=== PATIENT | male | born 2000 | race Two or more races ===

== ENCOUNTER 2025-04-13 10:23 | Inpatient (IN) ==
--- NOTE | 2025-04-13 10:45 | Emergency Department Note ---
Impression & Plan Altered mental status, Rhabdomyolysis ED Provider Note ED Provider Note NAME: PAULINE [id number] JARRETT AGE:24 SEX: Male : 2000 ARRIVES VIA: EMS INFORMANT: Patient ED PROVIDER(s): Roselia Gardner DO CHIEF COMPLAINT: AMS HPI: 24-year-old male presents the emergency room with complaints of agitation and altered mental status. Patient had been detained since September by records. States that they have not had problems with him until yesterday when he would not leave the yard after outside time. He had staring episodes and would not move or interact. He was brought to the [facility] overnight, he felt improved, so they brought him to the emergency room today. Unknown if there is any ingestions. No history of anything except a recorded decreased mentation at baseline. No surgical history, no medical problems. Not on any medicines. Patient was agitated on the scene, EMS had given ketamine and subsequently some Versed. He had improved following this, but by arrival in the emergency room, he was again agitated, additional Versed was given. He was agitated, verbal de- escalation attempted without improvement. Threatening staff, physical attempts at harm. PAST MEDICAL HISTORY:See Below PAST SURGICAL HISTORY:See Below FAMILY HISTORY:See Below SOCIAL HISTORY:See Below HOME MEDICATIONS:See Below ALLERGIES:See Below VITALS:See Below PHYSICAL EXAMINATION: GENERAL: alert, well appearing, well nourished, agitated, non-toxic EYE EXAM: normal conjunctiva, PERRL and EOM's grossly intact OROPHARYNX: no exudate, no erythema, lips, buccal mucosa, and tongue normal and mucous membranes are moist NECK: supple, no nuchal rigidity, no adenopathy, non-tender LUNGS: Clear to auscultation. Normal chest wall mechanics, no w/r/r HEART: no murmurs, S1 normal and S2 normal ABDOMEN: abdomen soft, non-tender, normo-active bowel sounds, no masses, no rebound or guarding. BACK: Back is symmetrical on inspection and there is no deformity, no midline tenderness, no CVA tenderness. SKIN: no rashes, petechiae, orbruising UPPER EXTREMITIES: upper extremities are grossly normal. FROM, nml pulses b/l. LOWER EXTREMITIES: No pitting edema. FROM, nml pulses b/l. NEURO EXAM: Normal sensorium, cranial nerves II-XII grossly intact, normal speech, no facial droop,nogross weakness of arms, no gross weakness of legs. Gross sensation intact. No ataxia. PSYCH: Patient is agitated, at times threatening staff, verbal de-escalation ineffective Vital Signs: reviewed and remarkable Differential Diagnosis: Alcohol intoxication, toxicologic, infection, hypoglycemia, electrolyte abnormalities, cardiac sources, intracerebral event, neurologic, trauma, as well as other pathologies. MEDICAL DECISION MAKIN-year-old male presents the emergency room with complaints of altered mental status. While in the emergency room, patient was threatening staff, verbal de- escalation ineffective. Patient was medicated and restrained. [id number] completed at the time of restraint. Patient improved, but then began to have increased agitation, unable to complete CT. Zyprexa ordered. Patient reevaluated again, patient's really improved with Zyprexa when at rest, but with any sort of stimulation, still having extreme agitation waking up, striking at staff and being uncooperative. Unable to obtain any imaging. Additional medications ordered. Patient reevaluated, now appropriately sedated. Able to get images. Maintaining airway. End-tidal appropriate. 1340 -Spoke with hospitalist team, will admit to Dr. Jordan. ER Treatment Provided: See below Diagnostics Interpreted By Me: -ECG: EKG shows sinus tachycardia rate of 117 with poor baseline, nonspecific ST changes, T wave inversions in lead III. Some flattening times. QT C440, QTc 316. -Cardiac Monitoring: An order was placed for continuous cardiac monitoring. The monitor shows a rate of 114 with sinus tach rhythm. -Laboratory studies: As stated above and show below. -Imaging studies: CT head WNL, CXR WNL Triage Nursing Note Reviewed Prior/Outside Records Reviewed Critical Care: There was over 35 minutes of critical care time spent managing this patient including any procedures. Past Med/Surg History Problem List (Updated 04/13/25 @ 12:07 by Roselia Gardner DO) Rhabdomyolysis (Acute) Altered mental status (Acute) Social History Smoking Status: Unknown if ever smoked Preferred Language: Danish Feels Safe at Home: Declines to Answer Home Meds Home Medications Medication Instructions Recorded Confirmed No Known Home Medications 04/13/25 04/13/25 Results & Data (ED) Vital Signs Vital Signs - 24 hr 04/13/25 10:42 04/13/25 10:42 04/13/25 10:42 Temperature 37.6 C H Temperature Source Axillary Pulse Rate Pulse Rate [Right Finger] 116 H Respiratory Rate 18 Respiratory Effort / Characteristics Non-Labored Spontaneous Respiratory Depth Normal Respiratory Pattern Regular Blood Pressure Blood Pressure [Right Arm] 126/77 Blood Pressure Mean Blood Pressure Mean [Right Arm] 93 Pulse Oximetry 96 97 Oxygen Delivery Method Room Air Room Air Sepsis Recent Fever Within 48 Hours No Sepsis New/Unexplained Change in Mental Status No Sepsis Action Taken by Nursing No Action Required End-Tidal CO2 End Tidal CO2 (18-54mmHg) 45 04/13/25 10:45 04/13/25 10:48 04/13/25 10:50 Temperature Temperature Source Pulse Rate 125 H 121 H Pulse Rate [Right Finger] Respiratory Rate 13 Respiratory Effort / Characteristics Respiratory Depth Respiratory Pattern Blood Pressure 126/77 Blood Pressure [Right Arm] Blood Pressure Mean 89 Blood Pressure Mean [Right Arm] Pulse Oximetry 95 Oxygen Delivery Method Sepsis Recent Fever Within 48 Hours Sepsis New/Unexplained Change in Mental Status Sepsis Action Taken by Nursing End-Tidal CO2 39 End Tidal CO2 (18-54mmHg) 04/13/25 11:00 04/13/25 11:00 04/13/25 11:03 Temperature Temperature Source Pulse Rate 109 H Pulse Rate [Right Finger] Respiratory Rate 20 Respiratory Effort / Characteristics Respiratory Depth Respiratory Pattern Blood Pressure 110/72 110/72 Blood Pressure [Right Arm] Blood Pressure Mean 81 81 Blood Pressure Mean [Right Arm] Pulse Oximetry 96 Oxygen Delivery Method Sepsis Recent Fever Within 48 Hours Sepsis New/Unexplained Change in Mental Status Sepsis Action Taken by Nursing End-Tidal CO2 43 End Tidal CO2 (18-54mmHg) 04/13/25 11:36 04/13/25 11:42 04/13/25 11:54 Temperature Temperature Source Pulse Rate 108 H Pulse Rate [Right Finger] Respiratory Rate Respiratory Effort / Characteristics Respiratory Depth Respiratory Pattern Blood Pressure 122/72 110/76 Blood Pressure [Right Arm] Blood Pressure Mean 83 86 Blood Pressure Mean [Right Arm] Pulse Oximetry 96 Oxygen Delivery Method Sepsis Recent Fever Within 48 Hours Sepsis New/Unexplained Change in Mental Status Sepsis Action Taken by Nursing End-Tidal CO2 End Tidal CO2 (18-54mmHg) 04/13/25 12:00 04/13/25 12:00 Temperature Temperature Source Pulse Rate Pulse Rate [Right Finger] Respiratory Rate Respiratory Effort / Characteristics Respiratory Depth Respiratory Pattern Blood Pressure 91/55 L 91/55 L Blood Pressure [Right Arm] Blood Pressure Mean 72 72 Blood Pressure Mean [Right Arm] Pulse Oximetry Oxygen Delivery Method Sepsis Recent Fever Within 48 Hours Sepsis New/Unexplained Change in Mental Status Sepsis Action Taken by Nursing End-Tidal CO2 End Tidal CO2 (18-54mmHg) Laboratory Data 04/13/25 12:13 04/13/25 11:00 Lab Results 04/13/25 04/13/25 04/13/25 Range/Units 11:00 11:05 11:43 WBC Cancelled RBC Cancelled Hgb Cancelled POC Hgb 16.7 (14.0-18.0) g/dl Hct Cancelled POC Hct 49 (42-52) % MCV Cancelled MCH Cancelled MCHC Cancelled RDW Std Deviation Cancelled RDW Coeff of Nain Cancelled Plt Count Cancelled MPV Cancelled Immature Gran % (Auto) Cancelled Neut % (Auto) Cancelled Lymph % (Auto) Cancelled [place] % (Auto) Cancelled Eos % (Auto) Cancelled Baso % (Auto) Cancelled Neut # (Auto) Cancelled Lymph # (Auto) Cancelled [place] # (Auto) Cancelled Eos # (Auto) Cancelled Baso # (Auto) Cancelled Immature Gran # (Auto) Cancelled Absolute Nucleated RBC Cancelled Nucleated RBC % (auto) Cancelled Neutrophils % (Manual) Cancelled Band Neutrophils % Cancelled Lymphocytes % (Manual) Cancelled Prolymphocyte % Cancelled Reactive Lymphs % (Man) Cancelled Monocytes % (Manual) Cancelled Eosinophils % (Manual) Cancelled Basophils % (Manual) Cancelled Metamyelocytes % (Man) Cancelled Myelocytes % (Man) Cancelled Promyelocytes % (Man) Cancelled Blast Cells % (Manual) Cancelled Plasma Cell % (Manual) Cancelled Other Cells % Cancelled Nucleated RBC % Cancelled Neutrophils # (Manual) Cancelled Band Neutrophils # Cancelled Total Absolute Neuts Cancelled Lymphocytes # (Manual) Cancelled Prolymphocyte # Cancelled Reactive Lymphs # Cancelled Total Abs Lymphocytes Cancelled Monocytes # (Manual) Cancelled Eosinophils # (Manual) Cancelled Basophils # (Manual) Cancelled Metamyelocytes # (Man) Cancelled Myelocytes # (Manual) Cancelled Promyelocytes # (Man) Cancelled Blast Cells # (Man) Cancelled Plasma Cell # (Manual) Cancelled Other Cells # Cancelled Nucleated RBCs # (Man) Cancelled Hypersegmented Neuts Cancelled Hyposegmented Neuts Cancelled Hypogranular Neuts Cancelled Large Granular Lymphs Cancelled # Lrg Granular Lymphs Cancelled Hairy Cells Cancelled Smudge Cells Cancelled Toxic Granulation Cancelled Toxic Vacuolation Cancelled Dohle Bodies Cancelled [place] Rod[place] Cancelled Platelet Estimate Cancelled Hypogranular Platelets Cancelled Giant Platelets Cancelled Platelet Satelliting Cancelled RBC Morphology Cancelled Polychromasia Cancelled Hypochromasia Cancelled Poikilocytosis Cancelled Basophilic Stippling Cancelled Anisocytosis Cancelled Microcytosis Cancelled Macrocytosis Cancelled Spherocytes Cancelled Pappenheimer Bodies Cancelled Sickle Cells Cancelled Target Cells Cancelled Tear Drop Cells Cancelled Ovalocytes Cancelled Stomatocytes Cancelled [place] Bodies Cancelled Echinocytes Cancelled Acanthocytes (Spur) Cancelled Rouleaux Cancelled RBC Agglutinates Cancelled Schistocytes Cancelled [place] Cell Cancelled POC Sodium 141 (135-144) mmol/L Sodium 141 (136-145) mmol/L POC Potassium 4.5 (3.3-5.0) mmol/L Potassium 4.2 (3.5-5.1) mmol/L POC Chloride 108 (101-112) mmol/L Chloride 107 (98-107) mmol/L Carbon Dioxide 23 (21-32) mmol/L POC Total CO2 22 L (24-31) mmol/L Anion Gap 11 (3-11) POC Anion Gap 16.0 (16-25) mmol/L POC BUN 21 H (7-18) mg/dl BUN 18 (6-23) mg/dl Creatinine 1.22 (0.6-1.4) mg/dl POC Creatinine 1.3 (0.6-1.3) mg/dl Est Cr Clr Drug Dosing 104.6 ml/min eGFR 84.38 BUN/Creatinine Ratio 14.8 (10-20) Glucose 88 (70-99(Fasting)) mg/dl POC Glucose (other) 88 (70-99) mg/dl Calcium 9.1 (8.6-10.3) mg/dl POC Ioniz Calcium Angelo 1.14 (1.12-1.32) mmol/l Total Bilirubin 0.7 (0.2-1.0) mg/dl AST 37 (13-39) U/L ALT 87 H (7-52) U/L Alkaline Phosphatase 53 (34-104) U/L Ammonia 47.0 (18-72) umol/L Total Creatine Kinase 1385 H (30-223) U/L Troponin I High Sens 8.8 (0-20) pg/ml Total Protein 8.0 (6.0-8.3) gm/dl Albumin 4.8 (3.4-5.0) gm/dl Globulin 3.2 (2.5-4.0) gm/dl Albumin/Globulin Ratio 1.5 (0.9-2) TSH 1.184 (0.300-4.500) uIu/ml Urine Color Urine Appearance (Clear) Urine pH (4.5-7.5) Ur Specific [place] (1.000-1.030) Urine Protein (Negative) Urine Glucose (UA) (Negative) Urine Ketones (Negative) Urine Blood (Negative) Urine Nitrite (Negative) Urine Bilirubin (Negative) Urine Urobilinogen (Negative) Ur Leukocyte Esterase (Negative) Urine WBC (Auto) (0-5) /hpf Urine RBC (Auto) (0-2) /hpf U Hyaline Cast (Auto) (0-2) /lpf U Epithel Cells (Auto) (0-2) /hpf Urine Bacteria (Auto) (None Seen) Hyaline Casts (None Presnt) /lpf Granular Casts (None Prsent) /lpf Urine Comment Salicylates < 3.0 L (3.0-30) mg/dl Acetaminophen < 3 L (10-30) ug/ml Ethyl Alcohol mg/dL < 10.0 (<10.0) mg/dl Blood Parasites ID Cancelled 04/13/25 04/13/25 Range/Units 12:13 Unknown WBC 9.95 RBC 4.94 Hgb 14.5 POC Hgb (14.0-18.0) g/dl Hct 43.6 POC Hct (42-52) % MCV 88.3 MCH 29.4 MCHC 33.3 RDW Std Deviation 46.2 RDW Coeff of Nain 14.3 Plt Count 251 MPV 10.1 Immature Gran % (Auto) 0.5 Neut % (Auto) 76.4 Lymph % (Auto) 13.5 [place] % (Auto) 9.2 Eos % (Auto) 0.2 Baso % (Auto) 0.2 Neut # (Auto) 7.60 H Lymph # (Auto) 1.34 [place] # (Auto) 0.92 H Eos # (Auto) 0.02 Baso # (Auto) 0.02 Immature Gran # (Auto) 0.05 Absolute Nucleated RBC Nucleated RBC % (auto) Neutrophils % (Manual) Band Neutrophils % Lymphocytes % (Manual) Prolymphocyte % Reactive Lymphs % (Man) Monocytes % (Manual) Eosinophils % (Manual) Basophils % (Manual) Metamyelocytes % (Man) Myelocytes % (Man) Promyelocytes % (Man) Blast Cells % (Manual) Plasma Cell % (Manual) Other Cells % Nucleated RBC % Neutrophils # (Manual) Band Neutrophils # Total Absolute Neuts Lymphocytes # (Manual) Prolymphocyte # Reactive Lymphs # Total Abs Lymphocytes Monocytes # (Manual) Eosinophils # (Manual) Basophils # (Manual) Metamyelocytes # (Man) Myelocytes # (Manual) Promyelocytes # (Man) Blast Cells # (Man) Plasma Cell # (Manual) Other Cells # Nucleated RBCs # (Man) Hypersegmented Neuts Hyposegmented Neuts Hypogranular Neuts Large Granular Lymphs # Lrg Granular Lymphs Hairy Cells Smudge Cells Toxic Granulation Toxic Vacuolation Dohle Bodies [place] Rods Platelet Estimate Hypogranular Platelets Giant Platelets Platelet Satelliting RBC Morphology Polychromasia Hypochromasia Poikilocytosis Basophilic Stippling Anisocytosis Microcytosis Macrocytosis Spherocytes Pappenheimer Bodies Sickle Cells Target Cells Tear Drop Cells Ovalocytes Stomatocytes [place] Bodies Echinocytes Acanthocytes (Spur) Rouleaux RBC Agglutinates Schistocytes [place] Cell POC Sodium (135-144) mmol/L Sodium (136-145) mmol/L POC Potassium (3.3-5.0) mmol/L Potassium (3.5-5.1) mmol/L POC Chloride (101-112) mmol/L Chloride (98-107) mmol/L Carbon Dioxide (21-32) mmol/L POC Total CO2 (24-31) mmol/L Anion Gap (3-11) POC Anion Gap (16-25) mmol/L POC BUN (7-18) mg/dl BUN (6-23) mg/dl Creatinine (0.6-1.4) mg/dl POC Creatinine (0.6-1.3) mg/dl Est Cr Clr Drug Dosing ml/min eGFR BUN/Creatinine Ratio (10-20) Glucose (70-99(Fasting)) mg/dl POC Glucose (other) (70-99) mg/dl Calcium (8.6-10.3) mg/dl POC Ioniz Calcium Angelo (1.12-1.32) mmol/l Total Bilirubin (0.2-1.0) mg/dl AST (13-39) U/L ALT (7-52) U/L Alkaline Phosphatase (34-104) U/L Ammonia (18-72) umol/L Total Creatine Kinase (30-223) U/L Troponin I High Sens (0-20) pg/ml Total Protein (6.0-8.3) gm/dl Albumin (3.4-5.0) gm/dl Globulin (2.5-4.0) gm/dl Albumin/Globulin Ratio (0.9-2) TSH (0.300-4.500) uIu/ml Urine Color Dark Yellow Urine Appearance Turbid A (Clear) Urine pH 5.5 (4.5-7.5) Ur Specific [place] 1.035 H (1.000-1.030) Urine Protein 3+ H (Negative) Urine Glucose (UA) Negative (Negative) Urine Ketones 1+ H (Negative) Urine Blood 1+ H (Negative) Urine Nitrite Negative (Negative) Urine Bilirubin Negative (Negative) Urine Urobilinogen Negative (Negative) Ur Leukocyte Esterase Negative (Negative) Urine WBC (Auto) 0-5 (0-5) /hpf Urine RBC (Auto) 11-20 H (0-2) /hpf U Hyaline Cast (Auto) 11-20 H (0-2) /lpf U Epithel Cells (Auto) 0-2 (0-2) /hpf Urine Bacteria (Auto) None Seen (None Seen) Hyaline Casts Present A (None Presnt) /lpf Granular Casts Present A (None Prsent) /lpf Urine Comment Salicylates (3.0-30) mg/dl Acetaminophen (10-30) ug/ml Ethyl Alcohol mg/dL (<10.0) mg/dl Blood Parasites ID Administered Medications Discontinued Medications Sodium Chloride (Nss) 1,000 mls @ 999 mls/hr IV .Q1H1M PERLITA Stop: 04/13/25 12:45 Last Admin: 04/13/25 12:15 Dose: 999 mls/hr Documented By: ML Midazolam HCl (Midazolam Hcl 5 Mg/Ml 2ml Vial) Confirm Administered Dose 10 mg .ROUTE .STK-MED ONE Stop: 04/13/25 10:38 Last Admin: 04/13/25 11:27 Dose: Not Given Documented By: Midazolam HCl (Midazolam Hcl 5 Mg/Ml 2ml Vial) 5 mg IV NOW STA Stop: 04/13/25 10:43 Last Admin: 04/13/25 11:26 Dose: 5 mg Documented By: MR Midazolam HCl (Midazolam Hcl 5 Mg/Ml 2ml Vial) 5 mg IV NOW STA Stop: 04/13/25 12:07 Last Admin: 04/13/25 12:24 Dose: 5 mg Documented By: ML Olanzapine (Olanzapine 10 Mg/2.1 Ml Sdv) 10 mg IM NOW STA Stop: 04/13/25 11:24 Last Admin: 04/13/25 11:33 Dose: 10 mg Documented By: MR Imaging Data Radiologist's Impression: Chest X-Ray 04/13/25 10:42 XR chest 1V portable CLINICAL HISTORY: weakness COMPARISON STUDY: None FINDINGS: Heart size and pulmonary vasculature are normal. No consolidation or pleural effusion. No pneumothorax. IMPRESSION: No acute findings. ACT 112: Negative or not required by law. Electronically signed by: Raúl Miner M.D. 04/13/2025 12:[address] 04/13/25 10:42 CT head/brain wo con CLINICAL HISTORY: AMS. TECHNIQUE: Multiple axial CT images of the head were obtained without contrast. A dose lowering technique was utilized adhering to the principles of ALARA. CT DOSE: 750.68 mGy.cm COMPARISON: None FINDINGS: No intracranial hemorrhage seen. No mass effect, midline shift, or hydrocephalus. No skull fracture seen. Visualized paranasal sinuses and mastoid air cells are clear. IMPRESSION: No acute findings. ACT 112: Negative or not required by law. The above report was generated using voice recognition software. It may contain grammatical, syntax or spelling errors. Electronically signed by: Raúl Miner M.D. 04/13/2025 12:41 PM Discharge Plan Visit Data Chief Complaint: Altered Mental Status ED Provider: Roselia Gardner Discharge Problem: Altered mental status, Rhabdomyolysis Patient Disposition: Admitted As Inpatient Condition: Fair Forms Stand Alone Forms: OpenPortal Prescriptions Prescriptions: No Action No Known Home Medications Referrals Referrals: PCP,NO [Primary Care Provider] -
[2025-04-13] MEDS: MIDAZOLAM HCL 5 MG/ML 2ML VIAL IV STA ×2 (11:26→12:24)
[2025-04-13] MEDS: MIDAZOLAM HCL 5 MG/ML 2ML VIAL ONE (11:27)
[2025-04-13 11:49] LABS: Acetaminophen < 3 ug/ml (10-30); Salicylate < 3.0 mg/dl (3.0-30)
[2025-04-13 12:01] LABS: Alanine Aminotransferase 87.0 U/L (7-52); Albumin Globulin Ratio 1.5 (0.9-2); Alkaline Phosphatase 53.0 U/L (34-104); Bilirubin,Total 0.7 mg/dl (0.2-1.0); Blood Urea Nitrogen 18.0 mg/dl (6-23); Calcium 9.1 mg/dl (8.6-10.3); Carbon Dioxide 23.0 mmol/L (21-32); Chloride 107.0 mmol/L (98-107); Creatine Kinase 1385.0 U/L (30-223); Creatinine Clr Calc Pharmacy 104.6 ml/min; Globulin 3.2 gm/dl (2.5-4.0); Glucose 88.0 mg/dl (70-99(Fasting)); Thyroid Stimulating Hormone 1.184 uIu/ml (0.300-4.500); Total Protein 8.0 gm/dl (6.0-8.3)
[2025-04-13 12:04] LABS: Anion Gap 11.0 (3-11); Potassium 4.2 mmol/L (3.5-5.1); Sodium 141.0 mmol/L (136-145)
[2025-04-13] MEDS: SODIUM CHLORIDE 0.9% 1,000 ML IV SCH ×2 (12:15→20:21)
[2025-04-13 12:34] LABS: Hematocrit (blood only) 43.6 % (42.0-52.0); Hemoglobin 14.5 g/dl (14.0-18.0); Immature Granulocytes # (auto) 0.05 K/uL (0.01-0.20); Immature Granulocytes % (auto) 0.5 %; Mean Corpuscular Hemoglobin 29.4 pg (25.0-34.0); Mean Corpuscular Volume 88.3 fL (80.0-100.0); Platelet Count 251 K/uL (130-400); RDW Standard Deviation 46.2 fL (36.4-46.3); Red Blood Count 4.94 M/uL (4.70-6.10); White Blood Count 9.95 K/ul (4.8-10.8)
--- NOTE | 2025-04-13 12:34 | XRay Report ---
XR chest 1V portable CLINICAL HISTORY: weakness COMPARISON STUDY: None FINDINGS: Heart size and pulmonary vasculature are normal. No consolidation or pleural effusion. No p neumothorax. IMPRESSION: No acute findings. ACT 112: Negative or not required by law. Electronically signed by: Raúl Miner M.D. 04/13/2025 12:32 PM
--- NOTE | 2025-04-13 12:42 | CT Scan Report ---
CT head/brain wo con CLINICAL HISTORY: AMS. TECHNIQUE: Multiple axial CT images of the head were obtained without contrast. A dose lowering tech nique was utilized adhering to the principles of ALARA. CT DOSE: 750.68 mGy.cm COMPARISON: None FINDINGS: No intracranial hemorrhage seen. No mass effect, midline shift, or hydrocephalus. No skull fracture seen. Visualized paranasal sinuses and mastoid air cells are clear. IMPRESSION: No acute findings. ACT 112: Negative or not required by law. The above report was generated using voice recognition software. It may contain grammatical, syntax o r spelling errors. Electronically signed by: Raúl Miner M.D. 04/13/2025 12:41 PM
[2025-04-13 13:20] LABS: Appearance Urine Turbid (Clear); Bacteria Urine Automated None Seen (None Seen); Epithelial Cell Urine Auto 0-2 /hpf (0-2); Glucose Urine UA Negative (Negative); WBC Urine Automated 0-5 /hpf (0-5)
[2025-04-13 13:47] LABS: Amphetamines+Metham, Urine Neg (Neg); MDMA (Ecstacy), Urine Neg (Neg); Marijuana, Urine Neg (Neg)
--- NOTE | 2025-04-13 14:06 | History & Physical Report ---
Date of Service April 13, 2025 Assessment & Plan (1) Altered mental status: (2) Rhabdomyolysis: Plan 24 year old male inmate from [facility] with no known PMH who presented to the ED on 04/13/2025 for altered mental status. AMS Patient presenting with AMS at [facility] facility and agitation Head CT negative Labs unremarkable aside from elevated CK as discussed below Tox screen positive for benzodiazepines - expected given versed administration by EMS Patient physically aggressive in ED requiring 4 point violent restraints Received ketamine and versed by EMS and zyprexa and versed in the ED Patient is no longer displaying aggression so will dc violent restraints for now Continue zyprexa 5mg IM PRN Psych consult when mental status improves Rhabdomyolysis CK 1385 on admission Received 1L NSS in ED Continue MIVF Recheck labs in am DVT Prophylaxis: SCDs Code Status: FULL CODE PCP: MK Disposition: admit to med surg Patient seen in collaboration with Dr Jordan. Please see addendum. I spent a total of 70 minutes coordinating, documenting and providing care for this patient excluding time spent in the performance of separately billed services or time spent by another provider/QHP. Admission and Anticipated Discharge Date Admission Date: 04/13/2025 History of Present Illness Chief Complaint: AMS Primary Care Provider: NO PCP 24 year old male inmate from [facility] with no known PMH who presented to the ED on 04/13/2025 for altered mental status. History obtained from [facility] guards at bedside as patient received chemical restraint and is lethargic. Per the guards, patient was brought by ICE to [facility] from the [place] in November. They have been unable to obtain any medical records on the patient but note that he does not take any medications. The guards have never heard the patient speak prior to today. Medical staff at the facility assume he has an intellectual disability. Yesterday he refused to come inside after being outside in the yard. He was just standing and staring. His cellmates expressed concern to medical staff that he was not acting himself. He was monitored in the medical unit overnight and was getting a mental health evaluation this morning when he got extremely agitated. It took multiple guards to get the patient under control and EMS was called. EMS reports he continued to be agitated in route and was given 400mg IM ketamine and 4mg IM/IV versed prior to arrival to the ED. Patient continued to be agitated in the ED where he was threatening staff and attempting physical harm. He was placed in four point violent restraints and given 20mg IV versed and 10mg IM zyprexa. Upon evaluation, patient was sedated and lethargic. He denied any pain and stated he wanted to sleep. Allergies Allergy/AdvReac Type Severity Reaction Status Date / Time No Known Allergies Allergy Unverified 04/13/25 14:20 Home Medications Medication Instructions Recorded Confirmed Type No Known Home Medications 04/13/25 04/13/25 History Past Med/Surg History Problem List (Updated 04/13/25 @ 12:07 by Roselia Gardner DO) Rhabdomyolysis (Acute) Altered mental status (Acute) Social History Smoking Status: Unknown if ever smoked Preferred Language: Vietnamese Feels Safe at Home: Declines to Answer Review of Systems Review of Systems: Unobtainable due to cognitive status Physical Exam Physical Exam: refer to exam by Dr Jordan Results & Data Results & Data Vital Signs (Past 12 Hours) Vital Signs Temp Pulse Pulse Resp BP BP Pulse Ox 04/13/25 13:33 83 13 97 04/13/25 13:30 109/63 04/13/25 13:15 119/67 04/13/25 13:12 83 13 97 04/13/25 13:03 83 14 99 04/13/25 13:00 121/78 04/13/25 12:54 94 H 15 100 04/13/25 12:45 100/71 04/13/25 12:42 88 14 96 04/13/25 12:37 115/67 04/13/25 12:00 91/55 L 04/13/25 12:00 91/55 L 04/13/25 11:54 110/76 04/13/25 11:42 108 H 96 04/13/25 11:36 122/72 04/13/25 11:03 109 H 20 96 04/13/25 11:00 110/72 04/13/25 11:00 110/72 04/13/25 10:50 121 H 04/13/25 10:48 125 H 13 95 04/13/25 10:45 126/77 04/13/25 10:42 97 04/13/25 10:42 37.6 C H 116 H 18 126/77 96 O2 Del Method 04/13/25 13:33 04/13/25 13:30 04/13/25 13:15 04/13/25 13:12 04/13/25 13:03 04/13/25 13:00 04/13/25 12:54 04/13/25 12:45 04/13/25 12:42 04/13/25 12:37 04/13/25 12:00 04/13/25 12:00 04/13/25 11:54 04/13/25 11:42 04/13/25 11:36 04/13/25 11:03 04/13/25 11:00 04/13/25 11:00 04/13/25 10:50 04/13/25 10:48 04/13/25 10:45 04/13/25 10:42 Room Air 04/13/25 10:42 Room Air Laboratory Results Short CBC 04/13/25 04/13/25 Range/Units 11:00 12:13 WBC Cancelled 9.95 Hgb Cancelled 14.5 Hct Cancelled 43.6 Plt Count Cancelled 251 BMP 04/13/25 11:00 Sodium 141 Potassium 4.2 Chloride 107 Carbon Dioxide 23 BUN 18 Creatinine 1.22 Glucose 88 Calcium 9.1 Cardiac Enzymes 04/13/25 Range/Units 11:00 Total Creatine Kinase 1385 H (30-223) U/L Liver Function 04/13/25 Range/Units 11:00 Total Bilirubin 0.7 (0.2-1.0) mg/dl AST 37 (13-39) U/L ALT 87 H (7-52) U/L Alkaline Phosphatase 53 (34-104) U/L Albumin 4.8 (3.4-5.0) gm/dl Urine 04/13/25 Range/Units Unknown Urine Color Dark Yellow Urine Appearance Turbid A (Clear) Urine pH 5.5 (4.5-7.5) Ur Specific [place] 1.035 H (1.000-1.030) Urine Protein 3+ H (Negative) Urine Glucose (UA) Negative (Negative) I have independently reviewed and interpreted patient's admitting labs including CBC, CMP, ammonia, CK, troponin, TSH, UA, tox screen. Diagnostic Findings Chest X-Ray 04/13/25 10:42 XR chest 1V portable CLINICAL HISTORY: weakness COMPARISON STUDY: None FINDINGS: Heart size and pulmonary vasculature are normal. No consolidation or pleural effusion. No pneumothorax. IMPRESSION: No acute findings. ACT 112: Negative or not required by law. Electronically signed by: Raúl Miner M.D. 04/13/2025 12:[address] 04/13/25 10:42 CT head/brain wo con CLINICAL HISTORY: AMS. TECHNIQUE: Multiple axial CT images of the head were obtained without contrast. A dose lowering technique was utilized adhering to the principles of ALARA. CT DOSE: 750.68 mGy.cm COMPARISON: None FINDINGS: No intracranial hemorrhage seen. No mass effect, midline shift, or hydrocephalus. No skull fracture seen. Visualized paranasal sinuses and mastoid air cells are clear. IMPRESSION: No acute findings. ACT 112: Negative or not required by law. The above report was generated using voice recognition software. It may contain grammatical, syntax or spelling errors. Electronically signed by: Raúl Miner M.D. 04/13/2025 12:41 PM ECG Additional Comments: I have independently reviewed and interpreted patient's admitting EKG which revealed: sinus tachycardia at a rate of 117bpm Code Status & VTE Plan Code Status Full Code VTE Prophylaxis Plan VTE Prophylaxis will be ordered: Yes Supervising Physician Co-Signing Physician Notes Attending addendum: The patient was seen and examined in emergency room. Is a 24-year-old male without known significant past medical history was brought in from the [facility] facility in [place] with aggressive behavior The history is taken from the ICE agent and the medical personal who was with him in detail who is can be finding H&P as above In the process of transportation and also in the emergency room he received ketamine, 2 doses of Versed and also Zyprexa and during my examination he was in deep sleep On asking question he mentioned to have some pain and pressure in the ankle but denies any other significant symptoms On examination Lying in bed without any acute distress His blood pressure noted to be low at systolic 90s and was afebrile and saturating normally on room air Chest was clear to auscultate bilaterally HeartS1-S2, regular Abdomenbenign Extremitiesno edema His admission labs, EKG and imaging studies reviewed No significant abnormalities noted so far in the imaging studies and labs except CPK level of 1300 Blood pressure was low and he was getting intravenous fluid Agitation, aggressive behavior with no significant past medical history known so far May have questionable psychosis/psychiatric problemWill get psych evaluation on waking up Awaiting urine tox screen Agree with assessment and plan as outlined above by Carley DIA and take the full responsibility of care in the hospital Dr Rosangela Jordan
[2025-04-13 14:48] LABS: Influenza A virus by PCR Negative (Neg); Influenza B virus by PCR Negative (Neg); SARS CoV2 RNA(COVID-19) Ceph NEGATIVE (Negative)
[2025-04-13] MEDS: SODIUM CHLORIDE 0.9% 500 ML IV SCH (16:38)
--- NOTE | 2025-04-13 21:55 | Electrocardiogram Report ---
Test Reason : Blood Pressure : */* mmHG Vent. Rate : 117 BPM Atrial Rate : 117 BPM P-R Int : 170 ms QRS Dur : 94 ms QT Int : 316 ms P-R-T Axes : 74 93 30 degrees QTcB Int : 440 ms Sinus tachycardia Rightward axis Abnormal ECG No previous ECGs available Confirmed by Dilan Orantes ([id number]) on 04/13/2025 9:55:28 PM Referred By: Confirmed By: Dilan Orantes
[2025-04-14 06:35] LABS: Hematocrit (blood only) 40.4 % (42.0-52.0); Hemoglobin 14.0 g/dl (14.0-18.0); Mean Corpuscular Hemoglobin 30.6 pg (25.0-34.0); Mean Corpuscular Volume 88.4 fL (80.0-100.0); Platelet Count 229 K/uL (130-400); RDW Standard Deviation 44.9 fL (36.4-46.3); Red Blood Count 4.57 M/uL (4.70-6.10); White Blood Count 9.72 K/ul (4.8-10.8)
[2025-04-14 07:06] LABS: Anion Gap 8 (3-11); Blood Urea Nitrogen 12 mg/dl (6-23); Calcium 8.6 mg/dl (8.6-10.3); Carbon Dioxide 22 mmol/L (21-32); Chloride 110 mmol/L (98-107); Creatinine Clr Calc Pharmacy 125.1 ml/min; Glucose 81 mg/dl (70-99(Fasting)); Potassium 3.9 mmol/L (3.5-5.1); Sodium 140 mmol/L (136-145)
[2025-04-14 07:25] LABS: Alanine Aminotransferase 62 U/L (7-52); Albumin Globulin Ratio 1.6 (0.9-2); Alkaline Phosphatase 53 U/L (34-104); Bilirubin,Total 0.8 mg/dl (0.2-1.0); Globulin 2.7 gm/dl (2.5-4.0); Total Protein 7.0 gm/dl (6.0-8.3)
[2025-04-14 07:46] LABS: Creatine Kinase 3874 U/L (30-223)
--- NOTE | 2025-04-14 10:27 | Ultrasound Report ---
Technique: Sonography was performed of the right upper quadrant of the abdomen Findings: There is no sign of cirrhosis or significant fatty infiltration. No definite liver mass is seen There is no evidence of cholelithiasis or cholecystitis. The gallbladder has a normal wall thickness and no adjacent fluid is seen. No definite sonographic Card sign was detected. There is no intrahepatic or extrahepatic bile duct dilatation. The common bile duct measures 3 mm The right kidney appears unremarkable. There is no hydronephrosis. No definite renal calculus or mass is seen No ascites is seen Impression: Unremarkable right upper quadrant abdominal sonogram Electronically signed by Bo Salgado 04-14-2025 10:26 AM
[2025-04-14] MEDS: FOLIC ACID 1 MG TAB PO SCH (11:07)
[2025-04-14] MEDS: THIAMINE HCL 100 MG TAB PO SCH (11:07)
[2025-04-14] MEDS: HALOPERIDOL LACTATE 5 MG/ML 1 ML VIAL IM STA (13:18)
--- NOTE | 2025-04-14 13:43 | Psychiatric Consultation ---
Date of Consultation April 14, 2025 Impression / Recommendations Impression Diagnostically consistent with possible catatonia, mixed versus psychosis versus agitation due to unknown trigger in setting of possible intellectual disability. [place]igo scale consistent with possible catatonia due to facial grimacing, some automatic obedience and new agitation. Unclear what would have triggered sudden onset of increased thought blocking and suspected hallucinations given that he's been in a secure setting with seemingly no access to substances and no previous psychiatric symptoms from November-April. Delirium also remains possible though he was fairly well oriented at time of my assessment. UDS positive for benzodiazepines but required medication prior to arrival to hospital for acute agitation. Overall, I spent a total of 60 minutes with this case including review of chart records, review of labwork, review of EKG QTc, direct evaluation of the patient at bedside, counseling the patient, discussion of the patient with the hospitalist provider, discussion with the psychiatric liason during clinical rounds and documentation in the electronic health record. (1) Altered mental status: (2) Rhabdomyolysis: (3) Catatonia: Plan -start ativan 1mg TID IV and if he gets somnolence then discontinue. If he tolerates but no significant improvement then would increase to 2mg TID IV as trial to see if speech and behavior changes. -Typically we avoid antipsychotics as we initially treat catatonia as it can make catatonia worse but if he becomes acutely agitated and is getting sedated from ativan then would start: olanzapine 5mg HS and 5mg BID po prn for psychosis. -Consider peripheral blood smear -For behavioral emergency: olanzapine 10 mg IM x 1 (DO NOT exceed 20mg per 24 hours, check EKG if IM dose required, NEVER co-administer with IM or IV benzodiazepines). -He is at high risk for acute dystonia so AVOID haldol, especially with his handcuffs making it harder to assess for potential muscle stiffness and abnormal movements -ideally could be switched to soft restraints from handcuffs as soon as possible given concern that pulling at handcuffs may be contributing to elevated CK levels/rhabdomyolysis Psych History Identifying Data Marcelo House is a 24 year old male inmate from [facility] with no known PMH who presented to the ED on 04/13/2025 for altered mental status. Psychiatry consulted for recommendations for possible psychiatric causes for altered mental status. Chief Complaint "They picked me up for no reason". History of Present Illness Marcelo has been detained at a local [facility] facility since November 2024 with sudden onset of standing outside and not speaking and refusal to go inside the [facility] facility. He later developed acute agitation. Per medical admission note possible history of intellectual disability. Additional history per psych liason note from 04/14/2025: "This RN went to round on the patient. Upon entering the room, pt is in four point shackles per driver license reviewing officer's policy. Per C.O. report - pt is not allowed to have shackles released. This RN asked patient his name, where he was from, if he was in pain, if he could talk, etc. The patient would only make grunting noises to this RN. When asked if he was in pain, the patient held up his arm that had an IV in place. This RN told the floor nurse about the exchange and the floor nurse flushed the IV and checked it and the IV is clean, dry, and intact and flushed normal. This RN asked the patient if he was having pain anywhere else and the patient grunted. This RN attempted to give the patient a crayon and blank piece of paper and told the patient to write or draw what he was attempting to communicate. The patient took the crayon and paper without issue but just stared at the nurse, did not write or draw anything. This RN told the patient that if he felt like communicating, I would be back, but until then I would leave the crayon with him and he can write or draw something out if he feels inclined. When this RN attempted to leave the room the patient started grunting at this nurse and motioning for me to come back. This nurse walked back over to the patient and asked the patient if he felt like talking now? Patient just stared at this nurse and refused to speak. This nurse then left. This nurse got the assisted center's phone number to contact their medical team for an update: phone number is [phone]. Per the nurse at the [facility], pt was in their yard and started to get aggressive and "flip out". Nurse at center had to contact guards and the guards had to utilize a use of force to subdue the patient. EMS was contacted and had to give IM injections to patient prior to bringing him to [facility]. Nurse at assisted center was able to confirm that patient does 100% speak Panamanian as he was communicating with them prior to this event. Pt is Greenlandic and being deported back to [place] as he is here illegally, however, prior to this event (though patient does have an accent) patient was communicating with their staff via Panamanian language. Pt was seen by facilities psychiatrist prior to this event. Per facility psychiatrist report: the psychiatrist was not able to get the patient to speak or respond to any commands. Psychiatrist was able to get an iPad civil engineering specialist and utilized Panamanian, Belarusian, Creole and Tuvaluan for interpretation attempts with no success. Pt did not respond to any of the languages. Pt was completely non verbal during entire interaction with adilia ernandez. Pt has been in the assisted center since November 30, 2024 and living in general population communicating with guards (via Panamanian) since November with no outbursts or complications. In November's intake, pt denies SI/HI or history of mental illness. Pt denied taking any medications. Pt. denied ever having suicidal ideation. Pt was noted as "thought stable, no distress" and qualified for [facility], [place]. In November, pt completed entire paper intake form in Panamanian. Psychiatrist's name at the facility: Dr. Criselda Arriaza" Today Marcelo is oriented to hospital, not to city but to month and year. Reports pain where his wrist shackles are in the place. Per guards when shackles are removed he rips out his IV and urinary catheter. Today he describes being "picked up for no reason". Pauses at times seemingly responding to internal stimuli. He denies any history of psychosis nor current voices. Facial grimaces at times. Some automatic obedience on exam. Allergies Allergy/AdvReac Type Severity Reaction Status Date / Time No Known Allergies Allergy Unverified 04/13/25 14:20 Home Medications Medication Instructions Recorded Confirmed Type No Known Home Medications 04/13/25 04/13/25 History Patient History Social History Smoking Status: Unknown if ever smoked Hx Alcohol Use: No (refused to answer) Hx Substance Use: No (refused to answer) Preferred Language: Panamanian Industrial Commercial Groundskeeper Required: No Beliefs That Will Affect Care: None Current Living Situation: Other Current Living Situation Comment: from [facility] assisted center Feels Safe at Home: Declines to Answer Physical Exam Vital Signs (Past 24 Hours): Last Vital Signs Temp 36.8 C 04/14/25 11:40 Pulse 99 H 04/14/25 11:40 Resp 18 04/14/25 11:40 BP 135/78 04/14/25 11:40 Pulse Ox 95 04/14/25 11:40 O2 Del Method Room Air 04/14/25 11:40 Results & Data (PSY) Medications Administered Folic Acid (Folic Acid 1 Mg Tab) 1 mg PO QAM PERLITA Stop: 05/14/25 08:59 Last Admin: 04/14/25 11:07 Dose: Not Given Documented By: HRB Sodium Chloride (Nss) 1,000 mls @ 125 mls/hr IV .Q8H PERLITA Stop: 04/14/25 18:14 Last Admin: 04/14/25 13:36 Dose: 125 mls/hr Documented By: Infusion: 04/14/25 13:35 Dose: Infused Documented By: Infusion: 04/14/25 10:02 Dose: 125 mls/hr Documented By: Infusion: 04/14/25 09:28 Dose: 0 mls/hr Documented By: Admin: 04/14/25 04:25 Dose: 125 mls/hr Documented By: snc Infusion: 04/14/25 04:24 Dose: Infused Documented By: snc Admin: 04/13/25 20:21 Dose: 125 mls/hr Documented By: miley Thiamine HCl (Thiamine Hcl 100 Mg Tab) 100 mg PO QAM PERLITA Stop: 05/14/25 08:59 Last Admin: 04/14/25 11:07 Dose: Not Given Documented By: HRB Coding Level of Care Code 43966 IN/OBS CONSULT LVL 4,60M Diagnoses Altered mental status R41.82 Rhabdomyolysis M62.82 Catatonia F06.1
--- NOTE | 2025-04-14 14:14 | Hospitalist Progress Note ---
Date of Service April 14, 2025 Assessment & Plan (1) Altered mental status: (2) Rhabdomyolysis: Plan 24 year old male inmate from [facility] with no known PMH who presented to the ED on 04/13/2025 for altered mental status. R/o Catatonia Encephalopathy of Unknown Etiology -Patient presenting with AMS at [facility] facility and agitation -Head CT negative -metabolic workup positive for mild transaminase elevation and CK elevation, ESR/CRP/B12 unremarkable, TSH unremarkable -received ketamine in ED -differential is broad, given above psychiatric diagnoses such as catatonia or psychosis highest on differential, other considerations include autoimmune encephalitis, drug intoxication (tox screen negative), bacterial/viral meningitis/encephalitis (less likely given normal inflammatory markers), other etiologies such as stroke/seizure seem less likely Plan: -psychiatry consult, appreciate recs -start lorazepam 1mg IV tid for catatonia per psychiatry -if needed, olanzapine 5mg HS and 5mg BID po prn for psychosis -MR brain with and without contrast when able -start thiamine, folic acid, checked B12/syphyllis Rhabdomyolysis -uptrending CK to 3500 meeting criteria for mild rhabdomyolysis Plan: -continue maintenance fluids #Elevated Transaminases -possibly 2/2 mild rhabdo vs. hepatitis vs. other process Plan: -check liver US -f/u outpatient I spent a total of 50 minutes in direct patient care, including [id number] time with the patient and/or family, reviewing medical records, ordering and reviewing diagnostic tests, and coordinating care with other healthcare providers. This time includes: history taking, physical examination, medical decision making, counseling, ECG interpretation, imaging interpretation, lab interpretation, orders, and education, excluding time spent in the performance of separately billed services. Admission and Anticipated Discharge Date Admission Date: April 13, 2025 Subjective Patient seen and examined at bedside. Care Home center guards present. Patient alert but minimally responsive to questions. Review of Systems Review of Systems: -unable to answer due to mental status o n my exam Physical Exam Physical Exam: Gen: A&O 0, agitated HEENT: NCAT, EOMI, not icteric. External ears normal. No rhinorrhea. Moist mucous membranes. Neck: Supple, full range of motion, no observable masses, No meningeal sign. Lungs: No Respiratory distress. CV: RRR, no edema. Abdomen: Soft, nondistended, No rebound tenderness. MSK: No joint swelling, no redness. Skin: No rashes, petechiae, lesions. Normal color per patient. Neuro: Normal Gait, Grossly intact. Psych: minimally interactive with surroundings, occasionally responds Results & Data Results & Data Vital Signs (Past 12 Hours) Vital Signs Temp Pulse Resp BP Pulse Ox O2 Del Method 04/14/25 11:40 36.8 C 99 H 18 135/78 95 Room Air Laboratory Results -personally reviewed, no leukocytosis noted, mild transaminase elevation noted, elevated CK noted consistent with rhabdo, drug screen unremarkable except for benzos (which were given in ED) Medications Administered Folic Acid (Folic Acid 1 Mg Tab) 1 mg PO QAM PERLITA Stop: 05/14/25 08:59 Last Admin: 04/14/25 11:07 Dose: Not Given Documented By: HRB Sodium Chloride (Nss) 1,000 mls @ 125 mls/hr IV .Q8H PERLITA Stop: 04/14/25 18:14 Last Admin: 04/14/25 13:36 Dose: 125 mls/hr Documented By: Infusion: 04/14/25 13:35 Dose: Infused Documented By: Infusion: 04/14/25 10:02 Dose: 125 mls/hr Documented By: Infusion: 04/14/25 09:28 Dose: 0 mls/hr Documented By: Admin: 04/14/25 04:25 Dose: 125 mls/hr Documented By: snc Infusion: 04/14/25 04:24 Dose: Infused Documented By: snc Admin: 04/13/25 20:21 Dose: 125 mls/hr Documented By: miley Lorazepam (Lorazepam 2 Mg/1 Ml Vial) 1 mg IV Q8H PERLITA Stop: 05/14/25 13:59 Last Admin: 04/14/25 14:06 Dose: 1 mg Documented By: HRB Thiamine HCl (Thiamine Hcl 100 Mg Tab) 100 mg PO QAM PERLITA Stop: 05/14/25 08:59 Last Admin: 04/14/25 11:07 Dose: Not Given Documented By: HRB
[2025-04-14] MEDS ORDERED: POLYETHYLENE (MIRALAX) 17 GM PACK PO PRN (15:22)
[2025-04-14] MEDS ORDERED: ONDANSETRON INJ 2 MG/ML 2 ML VIAL IV PRN (15:22)
[2025-04-14 16:41] LABS: Hematocrit (blood only) 41.1 % (42.0-52.0); Hemoglobin 13.4 g/dl (14.0-18.0); Immature Granulocytes # (auto) 0.02 K/uL (0.01-0.20); Immature Granulocytes % (auto) 0.2 %; Mean Corpuscular Hemoglobin 29.1 pg (25.0-34.0); Mean Corpuscular Volume 89.2 fL (80.0-100.0); Platelet Count 227 K/uL (130-400); RDW Standard Deviation 46.6 fL (36.4-46.3); Red Blood Count 4.61 M/uL (4.70-6.10); White Blood Count 9.89 K/ul (4.8-10.8)
[2025-04-14] MEDS ORDERED: ACETAMINOPHEN 500 MG TAB PO PRN (16:50)
[2025-04-15 06:30] LABS: Hematocrit (blood only) 40.8 % (42.0-52.0); Hemoglobin 14.0 g/dl (14.0-18.0); Mean Corpuscular Hemoglobin 30.3 pg (25.0-34.0); Mean Corpuscular Volume 88.3 fL (80.0-100.0); Platelet Count 222 K/uL (130-400); RDW Standard Deviation 45.1 fL (36.4-46.3); Red Blood Count 4.62 M/uL (4.70-6.10); White Blood Count 6.91 K/ul (4.8-10.8)
[2025-04-15 06:53] LABS: Alanine Aminotransferase 46.0 U/L (7-52); Albumin Globulin Ratio 1.7 (0.9-2); Alkaline Phosphatase 53.0 U/L (34-104); Anion Gap 4.0 (3-11); Bilirubin,Total 0.6 mg/dl (0.2-1.0); Blood Urea Nitrogen 10.0 mg/dl (6-23); Calcium 8.6 mg/dl (8.6-10.3); Carbon Dioxide 26.0 mmol/L (21-32); Chloride 109.0 mmol/L (98-107); Creatine Kinase 1825.0 U/L (30-223); Creatinine Clr Calc Pharmacy 130.2 ml/min; Globulin 2.4 gm/dl (2.5-4.0); Glucose 113.0 mg/dl (70-99(Fasting)); Magnesium 1.9 mg/dl (1.7-2.4); Potassium 4.0 mmol/L (3.5-5.1); Sodium 139.0 mmol/L (136-145); Total Protein 6.4 gm/dl (6.0-8.3)
--- NOTE | 2025-04-15 14:21 | Hospitalist Progress Note ---
Date of Service April 15, 2025 Assessment & Plan (1) Altered mental status: (2) Rhabdomyolysis: Plan 24 year old male inmate from [facility] with no known PMH who presented to the ED on 04/13/2025 for altered mental status. R/o Catatonia Encephalopathy of Unknown Etiology -Patient presenting with AMS at [facility] facility and agitation -Head CT negative -metabolic workup positive for mild transaminase elevation and CK elevation, ESR/CRP/B12 unremarkable, TSH unremarkable -received ketamine in ED -differential is broad, given above psychiatric diagnoses such as catatonia or psychosis highest on differential, other considerations include autoimmune encephalitis, drug intoxication (tox screen negative), bacterial/viral meningitis/encephalitis (less likely given normal inflammatory markers), other etiologies such as stroke/seizure seem less likely -appears slightly improved today Plan: -psychiatry consult, appreciate recs -continue lorazepam 1mg IV tid for catatonia per psychiatry -if needed, olanzapine 5mg HS and 5mg BID po prn for psychosis -MR brain with and without contrast when able -continue thiamine, folic acid, checked B12/syphyllis Rhabdomyolysis, resolving -downtrending today #Elevated Transaminases -possibly 2/2 mild rhabdo vs. hepatitis vs. other process -f/u outpatient I spent a total of 50 minutes in direct patient care, including [id number] time with the patient and/or family, reviewing medical records, ordering and reviewing diagnostic tests, and coordinating care with other healthcare providers. This time includes: history taking, physical examination, medical decision making, counseling, ECG interpretation, imaging interpretation, lab interpretation, orders, and education, excluding time spent in the performance of separately billed services. Admission and Anticipated Discharge Date Admission Date: April 14, 2025 Subjective Patient seen and examined at bedside. Nursing Home center guards present. Patient appears more talkative but agitated today. Review of Systems Review of Systems: -unable to answer due to mental status o n my exam Physical Exam Physical Exam: Gen: A&O 1, agitated HEENT: NCAT, EOMI, not icteric. External ears normal. No rhinorrhea. Moist mucous membranes. Neck: Supple, full range of motion, no observable masses, No meningeal sign. Lungs: No Respiratory distress. CV: RRR, no edema. Abdomen: Soft, nondistended, No rebound tenderness. MSK: No joint swelling, no redness. Skin: No rashes, petechiae, lesions. Normal color per patient. Neuro: Normal Gait, Grossly intact. Psych: interacting but agitated and still confused Results & Data Results & Data Vital Signs (Past 12 Hours) Vital Signs Temp Pulse Pulse Resp BP Pulse Ox O2 Del Method 04/15/25 11:00 36.8 C 60 18 113/71 99 Room Air 04/15/25 09:42 Room Air 04/15/25 08:13 36.5 C 61 18 114/73 97 Room Air 04/15/25 07:45 57 L 04/15/25 05:44 82 04/15/25 03:54 36.3 C L 79 17 122/66 95 Room Air Laboratory Results -personally reviewed, CK downtrending Medications Administered Folic Acid (Folic Acid 1 Mg Tab) 1 mg PO [facility] Stop: 05/14/25 08:59 Last Admin: 04/15/25 08:42 Dose: 1 mg Documented By: Admin: 04/14/25 11:07 Dose: Not Given Documented By: HRB Lorazepam (Lorazepam 2 Mg/1 Ml Vial) 1 mg IV Q8H [facility] Stop: 05/14/25 13:59 Last Admin: 04/15/25 13:00 Dose: 1 mg Documented By: Admin: 04/15/25 06:22 Dose: 1 mg Documented By: Admin: 04/14/25 23:13 Dose: 1 mg Documented By: Admin: 04/14/25 14:06 Dose: 1 mg Documented By: HRB Thiamine HCl (Thiamine Hcl 100 Mg Tab) 100 mg PO [facility] Stop: 05/14/25 08:59 Last Admin: 04/15/25 08:41 Dose: 100 mg Documented By: Admin: 04/14/25 11:07 Dose: Not Given Documented By: HRB
--- NOTE | 2025-04-15 16:54 | Psychiatric Progress Note ---
Date of Service April 15, 2025 Impression / Recommendations Impression Diagnostically consistent with possible catatonia, mixed versus psychosis versus agitation due to unknown trigger in setting of possible intellectual disability. Vega Rigo scale consistent with possible catatonia due to facial grimacing, some automatic obedience and new agitation. Unclear what would have triggered sudden onset of increased thought blocking and suspected hallucinations given that he's been in a secure setting with seemingly no access to substances and no previous psychiatric symptoms from November-April. Delirium also remains possible though he was fairly well oriented at time of my assessment. UDS positive for benzodiazepines but required medication prior to arrival to hospital for acute agitation. A: more talkative consistently, eating more and no facial grimacing after start of ativan IV all suggestive of catatonia. Would continue at current dose and given some periods of agitation and disinhibited statements reasonable to start olanzapine especially in light of his report of previous diagnosis of schizophrenia. If catatonia worsens then olanzapine can be held. Overall, I spent a total of 50 minutes with this case including review of chart records, review of labwork, direct evaluation of the patient at bedside, counseling the patient, discussion of the patient with the hospitalist provider, discussion with the psychiatric liason during clinical rounds and documentation in the electronic health record. (1) Altered mental status: (2) Rhabdomyolysis: (3) Catatonia: Plan -continue ativan 1mg TID IV -start: olanzapine 5mg HS po and 5mg BID po prn for psychosis. -For behavioral emergency: olanzapine 10 mg IM x 1 (DO NOT exceed 20mg per 24 hours, check EKG if IM dose required, NEVER co-administer with IM or IV benzodiazepines). -He is at high risk for acute dystonia so AVOID haldol, especially with his handcuffs making it harder to assess for potential muscle stiffness and abnormal movements Interval History Identifying Information Marcelo House is a 24 year old male inmate from [facility] with no known PMH who presented to the ED on 04/13/2025 for altered mental status. Psychiatry consulted for recommendations for possible psychiatric causes for altered mental status. Chief Complaint "I'm fine". Subjective Subjective Patient was seen & assessed and interval progress reviewed. Agitation yesterday after imaging and got IV haldol. Later received start of scheduled ativan and per nursing notes has been consistently communicating since that time. Today he is oriented to month and year. He recalls being in the facility yard [facility] but denies that he wasn't going back inside and that rather he was taken and moved around. States he is fine but hungry today. Asked about psychiatric history recalls being diagnosed with schizophrenia after being seen for 1 day at [facility] and again for 3 days at [facility] both last year. States his only previous medication while there was a sleeping pill "benadryl". Physical Exam Vital Signs (Past 24 Hours) Last Vital Signs Temp 37.1 C 04/15/25 16:00 Pulse 73 04/15/25 16:00 Resp 18 04/15/25 16:00 BP 116/72 04/15/25 16:00 Pulse Ox 99 04/15/25 16:00 O2 Del Method Room Air 04/15/25 16:00 Results & Data ([facility]) Laboratory Results Laboratory Results - last 24 hr 04/15/25 06:01 WBC 6.91 RBC 4.62 L Hgb 14.0 Hct 40.8 L MCV 88.3 MCH 30.3 MCHC 34.3 RDW Std Deviation 45.1 RDW Coeff of Nain 13.9 Plt Count 222 MPV 10.1 Sodium 139 Potassium 4.0 Chloride 109 H Carbon Dioxide 26 Anion Gap 4 BUN 10 Creatinine 0.98 Est Cr Clr Drug Dosing 130.2 eGFR 109.74 BUN/Creatinine Ratio 10.2 Glucose 113 H Calcium 8.6 Phosphorus 3.3 Magnesium 1.9 Total Bilirubin 0.6 AST 29 ALT 46 Alkaline Phosphatase 53 Total Creatine Kinase 1825 H Total Protein 6.4 Albumin 4.0 Globulin 2.4 L Albumin/Globulin Ratio 1.7 Current Inpatient Medications Current Inpatient Medications: Current Inpatient Medications Acetaminophen (Acetaminophen 500 Mg Tab) 1,000 mg PO Q8H PRN PRN Reason: Pain Stop: 05/14/25 16:49 Folic Acid (Folic Acid 1 Mg Tab) 1 mg PO QAM [facility] Stop: 05/14/25 08:59 Last Admin: 04/15/25 08:42 Dose: 1 mg Lorazepam (Lorazepam 2 Mg/1 Ml Vial) 1 mg IV Q8H [facility] Stop: 05/14/25 13:59 Last Admin: 04/15/25 13:00 Dose: 1 mg Olanzapine (Olanzapine 5 Mg Tablet) 5 mg PO HS [facility] Stop: 05/15/25 20:59 Olanzapine (Olanzapine 5 Mg Tablet) 5 mg PO BID PRN PRN Reason: agitation/psychosis Stop: 05/15/25 20:59 Ondansetron HCl (Ondansetron Inj 2 Mg/Ml 2 Ml Vial) 4 mg IV Q6H PRN PRN Reason: Nausea Stop: 05/14/25 15:21 Polyethylene Glycol (Polyethylene (Miralax) 17 Gm Pack) 17 gm PO DAILY PRN PRN Reason: Constipation Stop: 05/14/25 15:21 Thiamine HCl (Thiamine Hcl 100 Mg Tab) 100 mg PO [facility] Stop: 05/14/25 08:59 Last Admin: 04/15/25 08:41 Dose: 100 mg
[2025-04-16 05:25] LABS: Hematocrit (blood only) 41.5 % (42.0-52.0); Hemoglobin 13.5 g/dl (14.0-18.0); Mean Corpuscular Hemoglobin 28.8 pg (25.0-34.0); Mean Corpuscular Volume 88.5 fL (80.0-100.0); Platelet Count 220 K/uL (130-400); RDW Standard Deviation 45.1 fL (36.4-46.3); Red Blood Count 4.69 M/uL (4.70-6.10); White Blood Count 6.62 K/ul (4.8-10.8)
[2025-04-16 05:37] LABS: Alanine Aminotransferase 37.0 U/L (7-52); Albumin Globulin Ratio 1.8 (0.9-2); Alkaline Phosphatase 50.0 U/L (34-104); Anion Gap 4.0 (3-11); Bilirubin,Total 0.6 mg/dl (0.2-1.0); Blood Urea Nitrogen 7.0 mg/dl (6-23); Calcium 8.7 mg/dl (8.6-10.3); Carbon Dioxide 26.0 mmol/L (21-32); Chloride 108.0 mmol/L (98-107); Creatine Kinase 1009.0 U/L (30-223); Creatinine Clr Calc Pharmacy 135.8 ml/min; Globulin 2.2 gm/dl (2.5-4.0); Glucose 96.0 mg/dl (70-99(Fasting)); Potassium 3.8 mmol/L (3.5-5.1); Sodium 138.0 mmol/L (136-145); Total Protein 6.2 gm/dl (6.0-8.3)
--- NOTE | 2025-04-16 14:10 | Hospitalist Progress Note ---
Date of Service April 16, 2025 Assessment & Plan (1) Altered mental status: (2) Rhabdomyolysis: Plan 24 year old male inmate from [facility] with no known PMH who presented to the ED on 04/13/2025 for altered mental status. Catatonia Schziophrenia -Patient presenting with AMS at [facility] facility and agitation -Head CT negative -metabolic workup positive for mild transaminase elevation and CK elevation, ESR/CRP/B12 unremarkable, TSH unremarkable -received ketamine in ED -differential is broad, given above psychiatric diagnoses such as catatonia or psychosis highest on differential, other considerations include autoimmune encephalitis, drug intoxication (tox screen negative), bacterial/viral meningitis/encephalitis (less likely given normal inflammatory markers), other etiologies such as stroke/seizure seem less likely -appears slightly improved today Plan: -psychiatry consult, appreciate recs -continue lorazepam 1mg IV tid for catatonia per psychiatry -started zyprexa 5mg at nighttime, continue -if needed, 5mg BID po prn for psychosis -continue thiamine, folic acid Rhabdomyolysis, resolved -downtrending #Elevated Transaminases -possibly 2/2 mild rhabdo vs. hepatitis vs. other process -f/u outpatient I spent a total of 40 minutes in direct patient care, including [id number] time with the patient and/or family, reviewing medical records, ordering and reviewing diagnostic tests, and coordinating care with other healthcare providers. This time includes: history taking, physical examination, medical decision making, counseling, ECG interpretation, imaging interpretation, lab interpretation, orders, and education, excluding time spent in the performance of separately billed services. Admission and Anticipated Discharge Date Admission Date: April 14, 2025 Subjective Patient seen and examined at bedside. [facility] guards present. Patient more interactive today, was able to hold conversation. Very hungry. Review of Systems Review of Systems: CONSTITUTIONAL: Patient denies fevers, chills, sweats and weight changes. EYES: Patient denies any visual symptoms. EARS, NOSE, AND THROAT: No difficulties with hearing. No symptoms of rhinitis or sore throat. CARDIOVASCULAR: Patient denies chest pains, palpitations, orthopnea and paroxysmal nocturnal dyspnea. RESPIRATORY: No dyspnea on exertion, no wheezing or cough. GI: No nausea, vomiting, diarrhea, constipation, abdominal pain, hematochezia or melena. : No urinary hesitancy or dribbling. No nocturia or urinary frequency. No abnormal urethral discharge. MUSCULOSKELETAL: No myalgias or arthralgias. NEUROLOGIC: No chronic headaches, no seizures. Patient denies numbness, tingling or weakness. PSYCHIATRIC: Patient denies problems with mood disturbance. No problems with anxiety. ENDOCRINE: No excessive urination or excessive thirst. DERMATOLOGIC: Patient denies any rashes or skin changes. Physical Exam Physical Exam: Gen: A&O 3, agitated but improving HEENT: NCAT, EOMI, not icteric. External ears normal. No rhinorrhea. Moist mucous membranes. Neck: Supple, full range of motion, no observable masses, No meningeal sign. Lungs: No Respiratory distress. CV: RRR, no edema. Abdomen: Soft, nondistended, No rebound tenderness. MSK: No joint swelling, no redness. Skin: No rashes, petechiae, lesions. Normal color per patient. Neuro: Normal Gait, Grossly intact. Psych: interactive today, conversation held, still agitated a bit, hungry Results & Data Results & Data Vital Signs (Past 12 Hours) Vital Signs Temp Pulse Pulse Resp BP Pulse Ox O2 Del Method 04/16/25 11:59 36.6 C 75 18 115/75 98 Room Air 04/16/25 08:00 61 04/16/25 08:00 36.7 C 73 20 113/63 98 Room Air 04/16/25 05:33 59 L Laboratory Results -personally reviewed, CK downtrending,
[2025-04-17 06:00] LABS: Hematocrit (blood only) 41.1 % (42.0-52.0); Hemoglobin 14.3 g/dl (14.0-18.0); Mean Corpuscular Hemoglobin 30.6 pg (25.0-34.0); Mean Corpuscular Volume 87.8 fL (80.0-100.0); Platelet Count 236 K/uL (130-400); RDW Standard Deviation 43.2 fL (36.4-46.3); Red Blood Count 4.68 M/uL (4.70-6.10); White Blood Count 7.63 K/ul (4.8-10.8)
[2025-04-17 06:19] LABS: Alanine Aminotransferase 32.0 U/L (7-52); Albumin Globulin Ratio 1.7 (0.9-2); Alkaline Phosphatase 52.0 U/L (34-104); Anion Gap 6.0 (3-11); Bilirubin,Total 0.5 mg/dl (0.2-1.0); Blood Urea Nitrogen 9.0 mg/dl (6-23); Calcium 8.8 mg/dl (8.6-10.3); Carbon Dioxide 26.0 mmol/L (21-32); Chloride 106.0 mmol/L (98-107); Creatine Kinase 619.0 U/L (30-223); Creatinine Clr Calc Pharmacy 145.0 ml/min; Globulin 2.4 gm/dl (2.5-4.0); Glucose 90.0 mg/dl (70-99(Fasting)); Potassium 3.9 mmol/L (3.5-5.1); Sodium 138.0 mmol/L (136-145); Total Protein 6.5 gm/dl (6.0-8.3)
[2025-04-17 08:01] VITALS: PULSE 78; RESP 16; TEMP 97.3; O2SAT 97
--- NOTE | 2025-04-17 11:35 | Discharge Summary ---
Discharge Summary Date of Service April 17, 2025 Principal Dx & Hospital Course #1 = Principal Diagnosis (1) Altered mental status: (2) Rhabdomyolysis: Plan 24 year old male inmate from [facility] with no known PMH who presented to the ED on 04/13/2025 for altered mental status. Catatonia Schziophrenia -Patient presenting with AMS at [facility] facility and agitation -Head CT negative -metabolic workup positive for mild transaminase elevation and CK elevation, ESR/CRP/B12 unremarkable, TSH unremarkable -received ketamine in ED -differential is broad, given above psychiatric diagnoses such as catatonia or psychosis highest on differential, other considerations include autoimmune encephalitis, drug intoxication (tox screen negative), bacterial/viral meningitis/encephalitis (less likely given normal inflammatory markers), other etiologies such as stroke/seizure seem less likely -appears slightly improved today Plan: -psychiatry consult, appreciate recs -continue lorazepam 1mg IV tid for catatonia per psychiatry -started zyprexa 5mg at nighttime, continue -if needed, 5mg BID po prn for psychosis -continue thiamine, folic acid Rhabdomyolysis, resolved -downtrending #Elevated Transaminases -possibly 2/2 mild rhabdo vs. hepatitis vs. other process -f/u outpatient I spent a total of 40 minutes in direct patient care, including [id number] time with the patient and/or family, reviewing medical records, ordering and reviewing diagnostic tests, and coordinating care with other healthcare providers. This time includes: history taking, physical examination, medical decision making, counseling, ECG interpretation, imaging interpretation, lab interpretation, orders, and education, excluding time spent in the performance of separately billed services. Notes For Next Care Provider 24 year old male inmate from [facility] with no known PMH who presented to the ED on 04/13/2025 for altered mental status. On medicine, psychiatry consulted given concern for catatonia. Psychiatry diagnosis includes schizophrenia and catatonia, started on tid ativan and zyprexa at bedtime with remarkable improvement in condition. On 04/17/2025 patient medically stable for discharge back to correctional facility. Discussed with psychiatry, recommending PO ativan tid and zyprexa HS and follow up with psychiatry at correctional facility. Medication Changes From Visit -zyprexa, ativan Admission HPI Per Admitting Provider 24 year old male inmate from [facility] with no known PMH who presented to the ED on 04/13/2025 for altered mental status. History obtained from [facility] guards at bedside as patient received chemical restraint and is lethargic. Per the guards, patient was brought by [facility] to [facility] from the [place] in November. They have been unable to obtain any medical records on the patient but note that he does not take any medications. The guards have never heard the patient speak prior to today. Medical staff at the facility assume he has an intellectual disability. Yest erday he refused to come inside after being outside in the yard. He was just standing and staring. His cellmates expressed concern to medical staff that he was not acting himself. He was monitored in the medical unit overnight and was getting a mental health evaluation this morning when he got extremely agitated. It took multiple guards to get the patient under control and EMS was called. EMS reports he continued to be agitated in route and was given 400mg IM ketamine and 4mg IM/IV versed prior to arrival to the ED. Patient continued to be agitated in the ED where he was threatening staff and attempting physical harm. He was placed in four point violent restraints and given 20mg IV versed and 10mg IM zyprexa. Upon evaluation, patient was sedated and lethargic. He denied any pain and stated he wanted to sleep. Discharge Exam Gen: A&O 3, agitated but improving HEENT: NCAT, EOMI, not icteric. External ears normal. No rhinorrhea. Moist mucous membranes. Neck: Supple, full range of motion, no observable masses, No meningeal sign. Lungs: No Respiratory distress. CV: RRR, no edema. Abdomen: Soft, nondistended, No rebound tenderness. MSK: No joint swelling, no redness. Skin: No rashes, petechiae, lesions. Normal color per patient. Neuro: Normal Gait, Grossly intact. Psych: interactive today, conversation held, still agitated a bit, hungry Updated Medication List Medication Instructions Recorded Confirmed Type lorazepam 1 mg tablet 1 mg PO Q8 7 days #21 tabs 04/17/25 Rx olanzapine 5 mg tablet 5 mg PO HS #14 tabs 04/17/25 Rx Hospital Stay Data Consultations 04/13/25 13:38 ED Decision to Admit Stat 04/13/25 16:12 Consult Psychiatry Routine Diagnostic Imagining Performed 04/13/25 10:42 CT head/brain wo con Stat 04/14/25 07:58 US abdomen [US liver] Urgent 04/14/25 11:35 CT abd pelvis IV con only Urgent Pending Results Patient Have Any Pending Studies at Discharge: No Discharge Instructions Given to Patient (Per Discharging Provider) Diagnosis: catatonia, decompensated schizophrenia, rhabdomyolysis (resolved) Follow Ups: PCP, psychiatry Incidental Findings: elevated transaminases 1. Please follow up with PCP and psychiatry. 2. Take medications as prescribed. Total Time Total Time Spent Total Time Spent (In Minutes): I spent a total of 35 minutes in direct patient care, including [id number] time with the patient and/or family, reviewing medical records, ordering and reviewing diagnostic tests, and coordinating care with other healthcare providers. This time includes: history taking, physical examination, medical decision making, counseling, ECG interpretation, imaging interpretation, lab interpretation, orders, and education, excluding time spent in the performance of separately billed services.
[2025-04-17 11:44] VITALS: BP 128/90
[2025-04-17] MEDS: LORazepam 1 MG TAB PO SCH (13:16)
[2025-04-18 15:17] LABS: 7-Aminoclonaz, Confirm NEGATIVE ng/mL (<25); Hydro-Alp Ur, GC/MS NEGATIVE ng/mL (<25); Hydroxyethylflurazepam, Conf NEGATIVE ng/mL (<50); Hydroxymidazolam Ur, GC/MS >8000 ng/mL (<50); Lorazepam, Ur GC/MS NEGATIVE ng/mL (<50); Nordiazepam, Confirm NEGATIVE ng/mL (<50); Oxazepam Ur, GC/MS NEGATIVE ng/mL (<50); Temazepam, Confirm NEGATIVE ng/mL (<50)
== END 2025-04-17 14:12 | DRG 885 ==
LOC: 3N 10:23 → ED 10:23 → SUATTDRO 14:03 → 3N 15:55 → 4W 04-14 18:28